=== PATIENT | male | born 1940 ===

== ENCOUNTER 2021-01-22 06:01 | Emergency (ER) | payer SELFPAY ==
[~2021-01-22] VITALS: Ht 172.7 cm; Wt 60.6 kg
--- NOTE | 2021-01-22 06:13 | NUR ---
TOD 0613.
[2021-01-22] MEDS ORDERED: CODE BLUE RESPONSE XX ONE (06:34)
[2021-01-22] MEDS ORDERED: ATROPINE SYRINGE 0.1 MG/ML, 10ML ONE (06:34)
[2021-01-22] MEDS ORDERED: CALCIUM CHLORIDE 10%, 10ML SYR ONE (06:34)
[2021-01-22] MEDS ORDERED: SODIUM BICARB 8.4%, 50ML SYRINGE ONE (06:34)
[2021-01-22] MEDS ORDERED: EPINEPHRINE SYRINGE 0.1 MG/ML, 10ML ONE (06:34)
--- NOTE | 2021-01-22 06:35 | NUR ---
DONOR NETWORK CALLED AT THIS TIME SPOKE WITH [employer] REFERENCE NUMBER [phone]
--- NOTE | 2021-01-22 06:40 | NUR ---
0559 > arrived in ED as Code Blue. 0601> IO and IV placed. while CPR in progress 0602> pulse check, Asystole, resume CPR 0603> 1 mg Epi given 0604> pulse check, no pulse.
--- NOTE | 2021-01-22 06:55 | NUR ---
see CPR date sheet
--- NOTE | 2021-01-22 07:00 | NUR ---
care assumed. pt on [facility]. awaiting callback from senior abap developer and tissue donation.
--- NOTE | 2021-01-22 07:15 | NUR ---
pt gf instructed to contact family for information
--- NOTE | 2021-01-22 07:16 | NUR ---
making machine catcher notified @ 0461
[2021-01-22] MEDS ORDERED: SODIUM CHLORIDE FLUSH 10ML SYR IVF PRN (07:30)
--- NOTE | 2021-01-22 07:34 | NUR ---
transfer to saxophone assembler. pt in post mortem bag and transfered to [facility]. out of dept at 0735. dr lindo previously notified son of passing.
--- NOTE | 2021-01-22 07:42 | NUR ---
body released to Luisito Hedrick, [facility] medical field investigator. [phone]
--- NOTE | 2021-01-22 07:50 | NUR ---
donor network will follow up with stained glass glazier related to tissue donation
== END 2021-01-22 07:45 ==
LOC: EDBD 06:01 → ED 06:24
DX: I46.9 Cardiac arrest, cause unspecified (principal)
CPT/HCPCS: 31500; 92950; 99285; J0461; 82962